=== PATIENT | female | born 1955 | race Caucasian/White ===

== ENCOUNTER 2024-11-27 08:47 | Emergency (ER) | payer MEDICARE, BC ==
[~2024-11-27] VITALS: Ht 162.6 cm; Wt 59.0 kg
[2024-11-27 09:04] VITALS: BP 176/76
[2024-11-27] MEDS ORDERED: LIDOcaine HCl 1% (Local Anesth.) 20 ML VIAL STI STA (10:38)
[2024-11-27] MEDS ORDERED: BACTRIM DS1 TAB PO (10:40)
[2024-11-27] MEDS ORDERED: POVIDONE IODINE 0.5 OZ/BTL TOP ONE (10:40)
[2024-11-27 10:49] VITALS: BP 176/76
[2024-11-27] MEDS ORDERED: DIFLUCAN150 MG PO (10:51)
== END 2024-11-27 10:57 | disposition home or self-care (01) ==
LOC: ED 08:47
PROC: 0H9JXZZ Drainage of Left Upper Leg Skin, External Approach (ICD-10-PCS; principal; 2024-11-27)
DX: L02.416 Cutaneous abscess of left lower limb (principal)